=== PATIENT | female | born 1950 | race Caucasian/White ===

== ENCOUNTER 2016-05-13 07:48 | Outpatient (CLI) | payer MEDICARE ==
[2016-05-13 08:44] LABS: ALT (SGPT) 34 U/L (0-55); AST (SGOT) 22 U/L (5-34); Alkaline Phosphatase 69 U/L (40-150); Anion Gap 12 mmol/L (10-20); BUN (Urea Nitrogen) 16 mg/dL (9.8-20.1); Bilirubin, Total 0.6 mg/dL (0.2-1.2); Calc. Creatinine Clearance 0 mL/min (70-130); Calcium 9.6 mg/dL (7.8-10.44); Carbon Dioxide 26 mmol/L (23-31); Chloride 106 mmol/L (98-107); Estimated GFR-MDRD 80; Globulin 3.2 g/dL (2.4-3.5); Hemoglobin A1c 6.9 % (4.0-6.0); Protein, Total 7.7 g/dL (5.8-8.1)
== END 2016-05-13 07:49 | disposition home or self-care (01) ==
LOC: BURLAB 07:48
PROVIDERS: ATTEND Family Medicine
DX: Z11.59 Encounter for screening for other viral diseases (principal); I10 Essential (primary) hypertension; R73.09 Other abnormal glucose
CPT/HCPCS: 36415; 80053; 83036; 86803

== ENCOUNTER 2016-05-24 14:23 | Outpatient (CLI) | payer MEDICARE ==
[2016-05-25 23:58] LABS: HPV High Risk Type 16 Negative (Negative); HPV High Risk Type 18 Negative (Negative); HPV Other High Risk Types Negative (Negative)
== END 2016-05-24 14:24 | disposition home or self-care (01) ==
LOC: LABLEX 14:23
PROVIDERS: ATTEND Family Medicine
DX: Z12.4 Encounter for screening for malignant neoplasm of cervix (principal)
CPT/HCPCS: 87624; 88142; G0123

== ENCOUNTER 2016-08-31 11:02 | Outpatient (CLI) | payer MEDICARE ==
[2016-08-31 17:05] LABS: Hemoglobin A1c 6.4 % (4.0-6.0)
== END 2016-08-31 11:03 | disposition home or self-care (01) ==
LOC: LABLEX 11:02
PROVIDERS: ATTEND Family Medicine
DX: E11.9 Type 2 diabetes mellitus without complications (principal)
CPT/HCPCS: 83036

== ENCOUNTER 2018-06-08 09:02 | Emergency (ER) | payer MEDICARE ==
[2018-06-08] MEDS ORDERED: Adacel (T-DAP) 0.5 ML SYRINGE ONE (09:15)
[2018-06-08] MEDS ORDERED: Lidocaine 2% PF 5 ML VIAL ONE (09:16)
[2018-06-08] MEDS ORDERED: Bacitracin Zinc 1 Packet ONE (09:38)
== END 2018-06-08 09:42 | disposition home or self-care (01) ==
LOC: BURERS 09:02
DX: S61.052A Open bite of left thumb without damage to nail, initial encounter (principal); S61.011A Laceration without foreign body of right thumb without damage to nail, initial encounter; I10 Essential (primary) hypertension; E11.9 Type 2 diabetes mellitus without complications; Z79.899 Other long term (current) drug therapy; Z79.84 Long term (current) use of oral hypoglycemic drugs; W54.0XXA Bitten by dog, initial encounter
CPT/HCPCS: 12001; 90471; 90715; J2001

== ENCOUNTER 2024-01-29 14:03 | Emergency (ER) | payer MEDICARE, OTHER ==
[2024-01-29] MEDS ORDERED: AMOXicillin 250 MG CAP ONE (14:25)
== END 2024-01-29 14:30 | disposition home or self-care (01) ==
LOC: BURERS 14:03
DX: K04.7 Periapical abscess without sinus (principal); E11.9 Type 2 diabetes mellitus without complications; I10 Essential (primary) hypertension
CPT/HCPCS: 99283